=== PATIENT | male | born 2000 | race Caucasian/White ===

== ENCOUNTER 2025-02-03 23:48 | Emergency (ER) | payer OTHER, SELFPAY ==
[2025-02-03 23:51] VITALS: BP 165/77; PULSE 97; RESP 20; TEMP 36.2; O2SAT 97
--- NOTE | 2025-02-03 23:51 | ED.GENADUL_ITS ---
Discharge Plan Disposition Patient Disposition: Home Condition: Good Discharge Details Clinical Impression: Hand laceration ED Provider: Wayne Hernandez Home Meds and New Rx's Prescriptions: No Action levetiracetam [Keppra] 750 mg tablet 1,500 mg PO BID Discharge Instructions Instructions: Laceration Repair With Stitches ED, Wound Care ED, Tdap (Tetanus, Diphtheria, Pertussis) Vaccine CDC Vaccine Information Statement (VIS) Additional Instructions: You were seen for a hand laceration that was repaired with stitches. You may apply antibiotic ointment and keep covered with a Band-Aid. Do not soak your hands such as washing dishes, use of hot tubs. Stitches should remain in place for 10 to 14 days. Watch for any signs of infection. You received a tetanus booster today as well. Return to ED for concerns. Stand Alone Forms: Portal Information HPI General Mode of arrival: ambulatory . Date/Time Provider Initiated Documentation: 02/03/25 23:51 . Limitations to Documentation: no limitations . Information obtained by: patient and RN notes reviewed . HPI Narrative: Patient presents to ED with laceration to the left hand. Patient sustained laceration on the cover of his machine at work. No other injury, bleeding controlled. Patient is not sure of last tetanus. Related Data Home Medications ?Medication ?Instructions ?Recorded ?Confirmed levetiracetam 750 mg tablet 1,500 mg PO BID 02/04/25 1 04/07/24 (Keppra) Allergies Allergy/AdvReac Type Severity Reaction Status Date / Time No Known Allergies Allergy Unverified 02/04/25 00:01 Exam Narrative Exam Narrative: Const: WDWN male in NAD. VS per triage. HEENT: NC/AT. Normal facial exam. Neck: Supple. Trachea midline. Lungs: Normal respiratory effort. Neuro: A+O x 3. Normal speech, mentation, gait. Cranial nerves II - XII grossly intact. No gross motor or sensory deficit. Ext: Left hand with superficial laceration base of index finger radial side, approximately 1 cm curvilinear in nature. No deep injury, only through dermis. Procedure Laceration Laceration 1: Date of Procedure: 02/04/25 Time of procedure: 00:18 Provider that performed the procedure: Wayne Hernandez Patient Consented: Verbally Site: hand Side (If applicable): left Description: linear and clean Depth: simple, single layer Local anesthetic: Lidocaine 1% and with Epi Amount of anesthesia used (mL): 1 Pre-repair:: wound explored, irrigated extensively and deep structures intact Skin layer closed with: nylon Suture size: 6-0 Number of sutures:: 2 Technique: simple, interrupted Medical Decision Making Patient presenting with superficial 1 cm curvilinear laceration to the base of the index finger, left hand. No deep involvement. Wound anesthetized, irrigated and closed with sutures, see procedure note. Tetanus updated. Sutures out in 10 - 14 days. Wound care and return precautions provided. PFSH All Active Problems Hand laceration (Acute) Medical History Seizure disorder Social History Smoking/Tobacco Use Status: Current every day Tobacco Type: cigarettes Years smoked: 2 Tobacco: How many years used: 2 Smoking risk assessment performed?: Yes Alcohol Intake: current Alcohol Intake frequency: 0-2 drinks per day Alcohol type: beer Drug use: Never Substance use type: does not use Housing: apartment Do you feel safe at home: Yes
[2025-02-04] MEDS: Diph,Pertuss(Acell),Tet Vac/Pf 0.5 ML SYR IM (00:15)
== END 2025-02-04 00:32 | disposition home or self-care (01) ==
LOC: ER 02-04 00:47
PROVIDERS: Emergency Provider Emergency Medicine; PCP Nurse Practitioner Family
DX: S61.412A Laceration without foreign body of left hand, initial encounter (principal); W26.8XXA Contact with other sharp object(s), not elsewhere classified, initial encounter; Z23 Encounter for immunization; Y99.0 Civilian activity done for income or pay
CPT/HCPCS: 12001; 90471; 90715; 99284; 99283